=== PATIENT | male | born 1955 | race Caucasian/White ===

== ENCOUNTER → 2018-05-03 09:47 | Outpatient (CLI) | payer MEDICARE, OTHER, SELFPAY ==
[2018-05-03 10:06] LABS: Bacteria Urine None Seen; RBC Urine None Seen (0-5/HPF); WBC Urine None Seen (0-5/HPF)
[2018-05-03 10:53] LABS: Add Manual Diff / Slide Review NO; Basophils Percent Auto 0.5 % (0-2); Eosinophils Percent Auto 0.3 % (2-4); Hematocrit 45.9 % (41-53); Hemoglobin 15.4 g/dL (13.5-17.5); Mean Corpuscular HGB Conc 33.6 % (30-36); Mean Corpuscular Volume 86.5 fL (80-100); Monocytes Percent Auto 7.4 % (3-14); Neutrophils Absolute Auto 6700 /uL (3000-5900); Neutrophils Percent Auto 77.8 % (50-75); Platelet Count 401 X10^3/uL (150-400); Red Blood Cell Count 5.31 X10^6/uL (4.5-5.9); Red Cell Distribution Width 13.7 % (11.6-14.8); White Blood Cell Count 8.5 X10^3/uL (4.5-11.0)
[2018-05-03 10:55] LABS: Hemoglobin A1C% w Est Avg Glu 5.6 % (4.0-6.0)
[2018-05-03 11:30] LABS: BUN Creatinine Ratio 21.4 (6-22); Blood Urea Nitrogen 15 mg/dL (9-20); Calcium 9.8 mg/dL (8.4-10.2); Carbon Dioxide 27 mmol/L (22-32); Chloride 103 mmol/L (98-107); Estimated Glomerular Filt Rate > 60.0 mL/min (>60); Glucose 136 mg/dL (80-110); HEMOLYSIS < 15 (0-50); Potassium 4.7 mmol/L (3.4-5.1); Sodium 141 mmol/L (137-145)
[2018-05-03 11:38] LABS: Transferrin 303 mg/dL (206-381)
[2018-05-03 13:23] LABS: Appearance Urine UA CLEAR; Bilirubin Urine UA NEGATIVE (NEGATIVE); Color Urine UA YELLOW; Glucose Urine UA NEGATIVE (Normal); Ketones Urine UA NEGATIVE (NEGATIVE); Leukocyte Esterase Urine UA NEGATIVE (NEGATIVE); Nitrite Urine UA Negative (Negative); Occult Blood Urine UA NEGATIVE (Negative); Protein Urine UA NEGATIVE (Negative); Urobilinogen Urine UA 0.2 E.U./dL (0.2)
[2018-05-03 13:43] LABS: Culture Indicated Urine Cult Not Indicated; Urine Comments Microscopic Normal
== END ==
PROVIDERS: Visit Provider Orthopaedic Surgery
DX: N39.0 Urinary tract infection, site not specified (principal); R73.9 Hyperglycemia, unspecified; D64.9 Anemia, unspecified; M25.562 Pain in left knee; Z01.812 Encounter for preprocedural laboratory examination; Z01.818 Encounter for other preprocedural examination
CPT/HCPCS: 36415; 80048; 81001; 83036; 84466; 85025; 93005; 93010

== ENCOUNTER 2018-06-27 06:06 | Inpatient (IN) | payer MEDICARE, OTHER, SELFPAY ==
[2018-06-09 08:59] VITALS: BMI 26.2
[2018-06-27] VITALS (17 sets, daily range): BP systolic 131–172; BP diastolic 73–106; PULSE 74–112; RESP 8–26; TEMP 35.4–37; O2SAT 87–99; BMI 26.2
--- NOTE | 2018-06-27 | DI.RAD.S_ITS ---
PROCEDURE: XR KNEE RT 1TO2V INDICATIONS: TOTAL RIGHT KNEE TECHNIQUE: 2 view(s) of the knee acquired. COMPARISON: [facility], CR, XR KNEE LT 1TO2V, 06/27/2018, 10:57. FINDINGS: Bones: Patient is status post right knee total joint arthroplasty. Hardware components are in expected positions. Visualized bony structures are intact. Soft tissues: Overlying postoperative changes are noted. IMPRESSION: Normal operative alignment established after right total knee arthroplasty. Dictated by: Darwin Stock M.D. on 06/27/2018 at 11:37 Approved by: Darwin Stock M.D. on 06/27/2018 at 11:38
--- NOTE | 2018-06-27 | DI.RAD.S_ITS ---
PROCEDURE: XR KNEE LT 1TO2V INDICATIONS: left uni knee TECHNIQUE: 2 view(s) of the knee acquired. COMPARISON: None. FINDINGS: Bones: Patient is status post left knee joint medial hemiarthroplasty. Hardware components are in expected positions. Visualized bony structures are intact. Soft tissues: Overlying postoperative changes are noted. IMPRESSION: Normal alignment established after left medial compartment knee joint hemiarthroplasty. Dictated by: Darwin Stock M.D. on 06/27/2018 at 11:36 Approved by: Darwin Stock M.D. on 06/27/2018 at 11:37
[2018-06-27] MEDS: LACTATED RINGERS 1,000 ML 42 ML IV (06:52)
--- NOTE | 2018-06-27 07:50 | PM.PREOP ---
Pre-operative Note Interval Note Pre-op Check: Yes History & Physical Reviewed by Physician and Yes Exam Performed Changes: No
--- NOTE | 2018-06-27 07:50 | PM.OP.1 ---
Operative Date/Time/Diagnoses Date of procedure: 06/27/18 Time of procedure: 10:20 Pre-op diagnosis: Bilateral knee osteoarthritis Post-op diagnosis: same Procedure & Clinicians Procedure: 1. Right total knee replacement 2. Left medial unicompartmental arthroplasty Same procedure as scheduled: Yes Indications: The patient has had progressively worsening bilateral knee pain with radiographic changes consistent with arthritis. Non-operative management has failed and the patient has requested knee replacement. Due to ACL deficiency and patellofemoral pain on the right the patient will have a total knee. On the left side he has unicompartmental changes and pain will have a unicompartmental knee. The risks, benefits and alternatives to surgery were discussed with the patient prior to proceeding. Risks discussed included, but were not limited to, failure to relieve pain, stiffness, infection, nerve damage, deep venous thrombosis, pulmonary embolism, stroke, coma, heart attack, permanent paralysis and , as well as the potential need for eventual revision of the prosthetic. Surgeon: Rick Mai Recoating Machine Operator: Kvng Guallpa Click Yes if Unassisted: No Anesthesia Type: General, Spinal and Local Operative Notes Findings: Significant medial and patellofemoral osteoarthritis in the right knee significant medial osteoarthritis in the left knee. The patellofemoral and lateral compartments were not visualized due to the patient's lack of symptoms there preoperatively. Closure Type: primary Specimen(s): none sent Implants & Drains: Implants used in this procedure were manufactured by the [employer] and included the BCS II Journey total knee replacement for the right knee with a size 5 Oxinium femoral component, a size 4 non porous tibial base plate, a 10 mm crosslink polyethylene tibial insert and a 32 mm oval Natasha II patella. For the left knee a ZUK unicompartmental knee system from [employer] was utilized. This included a size C left medial femoral component, a size 2 left medial tibial component with an 11 mm polyethylene insert. Applied: implant(s) Estimated Blood Loss (mL): 100 Blood products transfused: none Tourniquet time (min): 54 (For the right side, left side was a 48 min tourniquet time.) Procedure in detail: The patient was seen in the pre-operative area, where the patient identified the right knee as the operative site for the total knee and the left knee as the operative site for the partial knee. Both knees were marked with my initials and with either TKA or UKA to identify the procedure. The patient received pre-operative antibiotics, and was taken to the operating room and placed on the operative table in the supine position. After satisfactory anesthesia, a time broker out was performed. The both legs were encircled with a tourniquet about the proximal thigh, and the legs were prepared from the toes to the tourniquet with ChloroPrep in the usual fashion and draped through sterile drapes. The right leg was elevated and exsanguinated with Eschmark bandage and the tourniquet inflated to 250 mmHg pressure. The knee was approached through an approximately 18 cm incision centered over the patella and carried into the knee through a medial parapatellar arthrotomy. The anterior osteophytes and soft tissues were removed. The rotational landmarks of [place]'s line and the transepicondylar axis were marked on the femur with electrocautery, and intramedullary guide holes for the femur and tibia were created. The distal femoral cut was made in 6 degrees of valgus using the intramedullary guide at the primary cut setting. The proximal tibial cut was then made using the intramedullary guide, taking 9 mm of bone off the less involved side. The extension gap was checked and the rotation of the femoral component confirmed with the gap balancing system. The anterior, posterior and chamfer cuts were then made. The posterior osteophytes and soft tissues were then removed. The posterior capsule was injected with part of a mixture of 40 ml 0.25% Marcaine mixed with 20 ml Exparel and 4 mg of morphine and enough saline to make the volume 100 mL for post-operative pain control. The remainder of this mixture was injected into the capsule and subcutaneous tissues during cement curing. The tibia was prepared with the rotation set by an extra medullary guide. Trial tibial and femoral components were then placed and the intercondylar notch cut through the femoral trial. Range of motion was 0-135 degrees, with good stability throughout the range. The patella was then cut to accommodate the patellar prosthetic. There was no need for a lateral release. The trials were then removed, and the femoral hole plugged with a bone plug. The bone was prepared with pulsatile lavage, and dried with a sponge. Cement was applied and the final prosthetics placed. Excess cement was removed during and after cement curing. After confirming there was no extruded cement posteriorly, the final tibial insert was placed. The knee was copiously irrigated and the tourniquet deflated. Hemostasis was obtained. The capsule was closed with interrupted # 2 polyester suture. The subcutaneous layer was closed with 3-0 Vicryl, and the skin with a running 3-0 V-Lock suture and SteriStrips. An Aquacel Ag dressing was applied. The left knee was then elevated and exsanguinated with an Esmarch bandage and tourniquet inflated to 250 mm of mercury. An approximately 10 cm incision was created over the medial aspect of the patellar tendon from the tibial tubercle to the proximal medial corner of the patella. A mid vastus incision was used and the knee. The medial meniscus was excised and part of the fat pad was excised to allow access to the medial tibial plateau. The linked cutting guide was placed used to make the distal femoral and proximal tibial cuts. The femoral sizer was applied and the appropriately sized cutting block used to make the posterior and chamfer cuts. The lug holes were also drilled and slightly enlarged with the T-handled reamer. The tibia was then sized and the trial tibia placed. The lug holes were drilled through the trial. The trial femoral component was placed and various sized tibial inserts were trialed using the 2 mm spacer stick. The appropriately sized implants were then opened. The posterior aspect of the medial meniscus had been removed prior to placing the trials. The posterior capsule was then injected with 20 mL of a solution containing 30 mL of 0.25% Marcaine mixed with 20 mL of Exparel and 4 mg of morphine along with enough saline to make the volume 100 mL. The remainder of this solution was injected into the capsule and subcutaneous tissues during closure. Bone was treated with pulsatile lavage and dried. Cement was impacted into position in the prosthetics placed. After curing of the cement and removal of all excess cement the final tibial insert was placed. The wound was copiously irrigated with pulsatile lavage. The tourniquet was deflated and hemostasis obtained with electrocautery. Closure was obtained with 1. Tycron in the capsular layer with 0 Vicryl for the intramuscular extension. The subcutaneous layer was closed with interrupted 3 O Vicryl the skin with a running 3 0 V lock suture. Steri-Strips were applied followed by an Aquacel Ag dressing. Both knees were then wrapped in Eze wraps. The patient was then transferred to the recovery room in good condition having tolerated the procedure well. Complications: none Condition: stable Disposition: PACU Plan for aftercare: The patient will be maintained on a standard total knee replacement protocol with weight bearing as tolerated. The patient will receive aspirin and sequential compression devices for DVT prophylaxis. The patient will be discharged home when safe for the home environment.
[2018-06-27] MEDS: CEFAZOLIN 1 GM VIAL IV ×2 (08:15→09:26)
[2018-06-27] MEDS: ACETAMINOPHEN IV 1,000 MG/100 ML VIAL 400 MG IV (08:30)
--- NOTE | 2018-06-27 08:48 | SUR.OPER ---
Supine on padded OR bed. Pillow under head, arms secured on padded armboards <90 degree abduction. Safety belt across torso. Both-legs secured secured in [employer] positioners - for left Medial Uni and right TKA today.
[2018-06-27] MEDS: BUPIVACAINE 0.25% W/ EPI VIAL 70 ML INJ (10:29)
[2018-06-27] MEDS: BUPIVACAINE LIPOSOME 266 MG/20 ML VIAL 532 MG INJ (10:31)
[2018-06-27] MEDS: MORPHINE 4 MG/ML INJ 8 MG IM (10:34)
--- NOTE | 2018-06-27 11:00 | SUR.PHASEI ---
On arrival restless and with some incoherence- pulling off gown. Skin diapohoretic. O2 applied with RA sats >90%.
--- NOTE | 2018-06-27 11:07 | SUR.PHASEI ---
When sleeping RR tends to decrease slight, but sats decrease more. On and off O2 in PACU.
[2018-06-27] MEDS: HYDROMORPHONE 2 MG INJ 0.5 MG IV (11:14)
[2018-06-27] MEDS: LACTATED RINGERS 1,000 ML 125 ML IV ×2 (12:28→21:01)
[2018-06-27] MEDS: ACETAMINOPHEN 325 MG TABLET 975 MG PO ×2 (14:58→20:30)
--- NOTE | 2018-06-27 15:01 | PT.IIE ---
Addendum entered and electronically signed by Kareen Lopez, PT 06/27/18 16:35: I certify I directly supervised and guided this patient. R Heena Lopez DPT Original Note: Current Diagnoses Unilateral primary osteoarthritis, right knee (06/27/18) Unilateral primary osteoarthritis, left knee (06/27/18) Sprain of anterior cruciate ligament of right knee, sequela (06/27/18) Surgery Performed Operation Date: 06/27/18 07:45 Actual Procedures p Right Total Knee Arthroplasty, Left Medial Compartment Arthroplasty - Rick Mai MD Surgical History (Last Reviewed 06/27/18 @ 12:52 by Kodi Davies) H/O: vasectomy (Acute) Hx of right inguinal hernia repair (Acute) Hx of umbilical hernia repair (Acute) Medical History (Last Reviewed 06/27/18 @ 12:52 by Kodi Davies) Arthritis (Acute) Right shoulder pain (Acute) Physical Therapy Inpatient Evaluation/Re-Eval M1 PT/OT-IP Prior Functional Status Start: 06/27/18 16:00 Freq: NEEDED Status: Active Protocol: Document 06/27/18 15:01 (Rec: 06/27/18 16:27 [email or web address]) Medical Review Prior Functional Status Medical History Reviewed Yes Communication No deficits noted Mobility and Gait Prior to surgery pt was modified independent with mobilities using a spc. He was independent with all other mobilities including bathing and self care. Social History Household Members spouse Living Arrangements House Number of Floors (Floors) Two Floors Number of Stairs To Enter/Railing? 5 steps to enter L rail ascending. Home Environment Tub/Shower Home Equipment Front Wheel Walker Straight Cane Hand Held Shower Employment Status Administration Manager Employed Additional Social History Comment Pt has his shop closed for the month of June for his recovery. His will be avaliable for 22/03 assist. They have a stool that they plan to use in the shower. Home is 2 floors, but he is set up to live entirely on first floor while he recovers. Ascending from the toilet he can push from sink on R. M2 PT-IP Current Condition Start: 06/27/18 16:00 Freq: NEEDED Status: Active Protocol: Document 06/27/18 15:01 (Rec: 06/27/18 16:27 [email or web address]) Physical Therapy Current Condition Weight Bearing Status Weight Bearing Status Weight Bear as Tolerated Allowed Weight Bearing Amount (enter % BLE are WBAT or #) (%) M3 PT-IP Subjective Start: 06/27/18 16:00 Freq: NEEDED Status: Active Protocol: Document 06/27/18 15:01 (Rec: 06/27/18 16:27 [email or web address]) Subjective Physical Therapy Visit Type Type Initial Evaluation Visit Start Time 15:01 Visit Stop Time 15:38 Total Visit Minutes 37 Number of CHARTER COACH DRIVER Visits 0 Physical Therapy Visit Comments Patient Comments Pt agreeable to mobilize with PT. Patient Goals Pt plans to go home with upon d/c Therapy Pain Assessment Pain When Pain Assessed During Mobility Pain Present Pain Present Pain Reported Location Bilateral Knee Scale Used R knee 5/10 at rest. L knee 1 /10 at rest. with mobility R knee 6/10. Pain Management Techniques Apply Cold Elevation Modification of Treatment Re-positioning Timing of Activity with Medications M4 PT-IP Mobility and Gait Start: 06/27/18 16:00 Freq: NEEDED Status: Active Protocol: Document 06/27/18 15:01 (Rec: 06/27/18 16:27 [email or web address]) PT-Bed Mobility Assessment Supine to Sit Supine to Sit Standby Assistance Scooting Scooting to Edge of Bed Independent PT-Transfer Assessment Sit to and From Stand Sit to and from Stand Contact Guard Assistance Equipment Transfer Assistive Device Gait Belt Front Wheeled Walker Orthotic/Prosthetic Devices or Brace: No Transfers Transfer Destination Bed Chair Comments Mobility Comments Supine BP 162/95 HR 80, o2 95% on room air. Sitting EOB BP 164/105 HR 87, o2 94%. Standing BP 165/104 HR 92. Sit <> stand SBA with fww requiring mod cues needed for hand placement (avoid walker) during sit <> stand. pt complains of slight dizziness with sitting EOB, but VSS are stable and pt agrees to attempt standing. standing symptoms of dizziness decrease , VSS are stable and pt agrees to ambulate. Gait Assessment Gait Gait Assistance Required: Contact Guard Assist Distance (Feet) 50 Able to Maintain Weight Bearing Status Yes During Gait Assistive Devices Assistive Device Gait Belt Front Wheeled Walker Orthotic/Prosthetic Devices or Brace: No Gait Deviations General Gait Pattern Antalgic Decreased Stride Length Decreased Feet Clearance Flexed Trunk Factors Limiting Gait Function Factors Limiting Gait Function Decreased Activity Tolerance Decreased Strength Limited Range of Motion Pain Poor Balance Poor Safety Awareness Comments Gait Comments Pt ambulated 25+5+50 (bed > BR > chair > bed) with CGA and fww and required mod cues for upright posture, activating quads, and allowing knee to bend appropriately during gait cycle. Post ambulation BP 164/93 HR 91 and 02 94%. Pt no longer c/o dizziness. Nurse aware that pt taken off O2 supplement during and after session. PT-Balance Assessment Sitting Balance and Reactions Static Sitting Balance Ability Good Dynamic Sitting Balance Ability Good Standing Balance and Reactions Static Standing Balance Ability Good Dynamic Standing Balance Ability Fair Device Used fww M5 PT-IP Objective Assessments Start: 06/27/18 16:00 Freq: NEEDED Status: Active Protocol: Document 06/27/18 15:01 (Rec: 06/27/18 16:27 [email or web address]) Strength Lower Extremity Strength Assessment Bilaterally Impaired Hip 3+ Knee 3+ Ankle 5 Comments Strength Comments grossly symmetrical strength. M6 PT-IP Treatment Start: 06/27/18 16:00 Freq: NEEDED Status: Active Protocol: Document 06/27/18 15:01 (Rec: 06/27/18 16:27 [email or web address]) Physical Therapy Treatment Exercises Exercises Ankle Pumps Quad Sets Heel Slides Straight Leg Raises Short Arc Quads Passive Knee Extension Hang Seated Knee Flexion/Extension Education Education Provided Precautions Weight Bearing Status Post-Op Packet Safety M7 PT-IP Assessment and Plan Start: 06/27/18 16:00 Freq: NEEDED Status: Active Protocol: Document 06/27/18 15:01 (Rec: 06/27/18 16:27 [email or web address]) PT Summary Assessment and Plan Potential Rehabilitation Potential Good Status of Condition at Evaluation Stable Summary Impairments Pain ROM Strength Balance Coordination Bed Mobility Transfers Gait Activity Tolerance Progress Towards Goals Progressing Toward Goals Assessment Summary Pt s/p R TKA and L knee unicompartment replacement presenting with difficulty walking. He was able to ambulate 75 feet this session CGA with fww and no LOB but does demonstrate significant antalgic gait. Recommend d/c to home with 24/7 assist and f /u OP PT when pt is medically stable and caregiver training complete. Goals Bed Mobility Goal Independent Transfer Goal Independent Gait Goal Standby Assistance Gait Distance 300 Other Goals up down 5 steps with L rails ascending CGA as needed for safe access home. Frequency of Treatment Frequency Of Treatment Twice a Day Treatment Plan Physical Therapy Treatment Plan Bed Mobility Training Transfer Training Gait Training Therapeutic Exercise Balance Retraining Post Op Education Discharge Planning Hot or Cold Pack Neuromuscular Re-ed Coordination Retraining Manual Therapy Other Recommendations and Next Treatment stair climbing. Pt Focus prepared to be here for caregiver training at 3 pm. Recommendations To Nursing Amount of Assist Needed 1 Person Assist Discharge Recommendations PT Discharge Recommendations Home with 24/ Assist Outpatient PT
--- NOTE | 2018-06-27 16:27 | PC.NURSE ---
Addendum entered by Nina Vines R.N. 06/27/18 21:03: Satisfactory post op course. IV continues as per orders. Dsg remain CDI. Voiding per urinal. Med w/ oxycodone at 1900 w/ good reoief. Call light w/in reach, bed alarm on for pt safety. Continue w/plan of care. Original Note: Addendum entered by Nina Vines R.N. 06/27/18 18:58: Med at this time w/oxycodone for 3/10 discomfort. Original Note: Pt sitting in chair, assisted to BR w/o incidense. Denies discomfort at this time. IV LR infusing at 125cc/hr via pump into the right hand w/o incidence. Dsg on bilateral knees CDI. CMS ++, ice to surgical sites. Call light w/in reach.
[2018-06-27] MEDS: CEFAZOLIN 2 GM/100 ML FROZ.PIGGY IV (16:35)
[2018-06-27] MEDS: OXYCODONE IR 5 MG TABLET PO (18:55)
[2018-06-27] MEDS: ASPIRIN EC 81 MG TABLET PO (20:29)
[2018-06-27] MEDS: DOCUSATE 100 MG CAPSULE PO (20:29)
[2018-06-28 00:16] VITALS: BP 154/93; PULSE 82; RESP 18; TEMP 36.7; O2SAT 95
[2018-06-28] MEDS: OXYCODONE IR 5 MG TABLET PO ×4 (00:40→12:56)
[2018-06-28] MEDS: CEFAZOLIN 2 GM/100 ML FROZ.PIGGY IV (01:23)
[2018-06-28 04:58] VITALS: BP 151/94; PULSE 79; RESP 16; TEMP 36.6; O2SAT 96
[2018-06-28 06:12] LABS: Hematocrit 38.6 % (41-53); Hemoglobin 12.8 g/dL (13.5-17.5)
--- NOTE | 2018-06-28 07:53 | PM.DS.1 ---
History of Present Illness Date Patient Seen: 06/28/18 Time Patient Seen: 07:53 Chief complaint: right total knee arthroplasty [id number] Narrative: The history of present illness and physical examination is contained in the chart in a previously completed note. Please refer to that note for this information. Discharge Providers Date of admission: 06/27/18 06:06 Consults: 06/27/18 12:05 Consult to Discharge Planning Routine Comment: Consult to Physical Therapy Evaluate & Treat Comment: Physician Instructions: postop TKA protocol Discharge provider: Rick Mai MD Discharge Date: 06/28/18 Summary Discharge Diagnosis: 1. Bilateral knee osteoarthritis 2. Mild post hemorrhagic anemia Hospital Course: The patient was admitted to the hospital and taken directly to the operating room on June 27, 2018 where he underwent a right total knee replacement and a left knee unicompartmental arthroplasty. On postoperative day 1 he had mild pain on the right side and essentially no pain on the left. He had made good progress with walking on level floors but had not attempted stairs. He needs to be able to scale 5 stairs in order to enter his home. At the time of this dictation the plan is for him to do stairs with physical therapy today and then likely be discharged. If he is unable to do the stairs then he will be kept in the hospital until tomorrow. Status at Discharge Cognitive/behavioral status at discharge: Baseline. Functional status at discharge: uses cane/walker Overall status at discharge: patient is progressing back to baseline Time Spent with Patient Less than 30 minutes Exam Vital Signs (past 8 hours): - 06/28/18 00:16 06/28/18 04:58 Temperature 98.0 F 97.8 F Pulse Rate 82 79 Respiratory Rate 18 16 Blood Pressure 154/93 H 151/94 H Pulse Oximetry 95 96 Oxygen Delivery Method Nasal Cannula Oxygen Flow Rate 0 Narrative Exam Narrative: On physical examination the dressings on both knees are without significant drainage. Calves are soft. Light touch and motion are intact in both lower extremities. Objective Labs Result Diagrams: 06/28/18 05:45 Labs: Laboratory Results - last 24 hr 06/28/18 05:45 Hgb 12.8 L Hct 38.6 L Radiographs reveal an appropriately positioned right total knee replacement and left medial unicompartmental arthroplasty with no signs of complications. Discharge Plan Discharge Plan Patient Disposition: Home Discharge Med Rec/Prescriptions Prescriptions: New acetaminophen 325 mg Tablet 975 mg PO TID 30 Days Qty: 270 RF: 0 polyethylene glycol 3350 17 gram Powder In Packet 17 gm PO DAILY PRN (Reason: Constipation) 30 Days RF: 0 aspirin 81 mg Tablet,Delayed Release (Dr/Ec) 81 mg PO BID 42 Days Qty: 84 RF: 0 docusate sodium 100 mg Capsule 100 mg PO BID 30 Days Qty: 60 RF: 0 oxycodone 5 mg Tablet 5 mg PO Q3HR PRN (Reason: Pain, Moderate (4-6)) Qty: 60 RF: 0 hydroxyzine pamoate 25 mg Capsule 25 mg PO Q6HR PRN (Reason: Nausea) Qty: 40 RF: 0 Continue naproxen sodium [Aleve] 220 mg Capsule 660 mg PO DAILY PRN (Reason: pain) RF: 0 Follow up/Referrals: Rick Mai MD [Physician] - 3-5 Days Provider Discharge Instructions Diet: Diet as Tolerated and Regular Activity: You may weight bear as tolerated. Walk for short periods of time every hour while awake Cold/Heat Therapy: Apply ice to both knees through the bandage for 15 min every hour as needed. Skin/Wound/Dressing Care Report to your healthcare provider any signs of infection, such as:: chills, fever, night sweats, increased pain and unusual drainage Dressing: Remove the Eze wrap dressing 3 days after surgery. You may shower with the deeper dressing in place. If the central strip of the deep dressing becomes saturated with either water or blood call the office to have it changed. Discharge Data Attending Provider: Rick Mai Admit Date/Time: 06/27/18 06:06
[2018-06-28 08:50] VITALS: BP 155/80; PULSE 97; RESP 24; TEMP 36.6; O2SAT 94
--- NOTE | 2018-06-28 08:58 | PT.IPTN ---
Addendum entered and electronically signed by Kareen Lopez, PT 06/28/18 11:25: I certify I directly supervised and guided this session. R Heena Lopez DPKeren Original Note: Current Diagnoses Unilateral primary osteoarthritis, right knee (06/27/18) Unilateral primary osteoarthritis, left knee (06/27/18) Sprain of anterior cruciate ligament of right knee, sequela (06/27/18) Surgery Performed Operation Date: 06/27/18 07:45 Actual Procedures p Right Total Knee Arthroplasty, Left Medial Compartment Arthroplasty - Rick Mai MD Physical Therapy Treatment Note M2 PT-IP Current Condition Start: 06/27/18 16:00 Freq: NEEDED Status: Active Protocol: Document 06/28/18 10:39 (Rec: 06/28/18 10:59 [email or web address]) Physical Therapy Current Condition Current Condition Evaluation Date 06/27/18 Treatment Diagnosis R TKA, L uni replacement; difficulty walking Onset Date 06/27/2018 Weight Bearing Status Weight Bearing Status Weight Bear as Tolerated Allowed Weight Bearing Amount (enter % BLE are WBAT or #) (%) M3 PT-IP Subjective Start: 06/27/18 16:00 Freq: NEEDED Status: Active Protocol: Document 06/28/18 10:39 (Rec: 06/28/18 10:59 [email or web address]) Subjective Physical Therapy Visit Type Type Treatment Note Visit Start Time 08:58 Visit Stop Time 09:30 Total Visit Minutes 32 Number of ACRYLIC FABRICATOR Visits 0 Physical Therapy Visit Comments Patient Comments Pt agreeable to mobilize with PT Patient Goals Pt hopes to spend another night in the hospital then go home with at d/c. Therapy Pain Assessment Pain When Pain Assessed During Mobility Pain Present Pain Present Pain Reported Location Bilateral Knee Scale Used L knee 0-1/10 and R 5/10. ( both constant with rest and mobility) Pain Management Techniques Apply Cold Distraction Elevation Modification of Treatment Re-positioning Timing of Activity with Medications M4 PT-IP Mobility and Gait Start: 06/27/18 16:00 Freq: NEEDED Status: Active Protocol: Document 06/28/18 10:39 (Rec: 06/28/18 10:59 [email or web address]) PT-Bed Mobility Assessment Supine to Sit Supine to Sit Standby Assistance Scooting Scooting to Edge of Bed Independent PT-Transfer Assessment Sit to and From Stand Sit to and from Stand Standby Assistance Equipment Transfer Assistive Device Gait Belt Front Wheeled Walker Orthotic/Prosthetic Devices or Brace: No Transfers Transfer Destination Chair Wheelchair Comments Mobility Comments VSS resting/HOB elevated 155/ 80. supine to sit is SBA and pt c/o dizziness at EOB. BP seated 144/103 and HR 103. Pt cued for deep breathing and to rest 1-2 mins. before standing. Pt states dizziness decreased and agrees to stand . Sit > stand is SBA with min cues for hand placement ( avoid walker). Standing BP 155/87, HR 108. Pt states symptoms of dizziness are mild . Gait Assessment Gait Gait Assistance Required: Standby Assistance Distance (Feet) 20 Able to Maintain Weight Bearing Status Yes During Gait Assistive Devices Assistive Device Gait Belt Front Wheeled Walker Orthotic/Prosthetic Devices or Brace: Yes Gait Deviations General Gait Pattern Antalgic Decreased Stride Length Decreased Feet Clearance Factors Limiting Gait Function Factors Limiting Gait Function Decreased Activity Tolerance Decreased Strength Limited Range of Motion Pain Poor Balance Comments Gait Comments Pt ambulates SBA with fww 20 + 10 + 10 +20 ft from bedside to w/c to/from stairs. Pt circumducts R LE with gait and is able to partially correct with cues. Stair Climbing Assessment Evaluation Level of Assist On Stairs Minimal Assistance 1 Person Assistance Devices Stair Climbing Assistive Devices Straight Cane Left Railing Technique/Endurance Stair Climbing Direction Ascend and Descend Stair Climbing Technique Step to Step Number of Steps Climbed 3 Query Text: Stair Climbing Set # Repetitions (reps) 2 Comments Stair Climbing Comments Performed up/down 3 stairs X2 with spc, Ciro for balance, L rail ascendin, and seated rest break between sets. Descends with backwards strategy. Pt requires mod cues for quad activation, and to bend RLE instead of circumduct to ascend steps. Post session seated BP 153/85 HR 105. Pt left in recliner with call light, ice over B knees. M5 PT-IP Objective Assessments Start: 06/27/18 16:00 Freq: NEEDED Status: Active Protocol: Document 06/28/18 10:39 (Rec: 06/28/18 10:59 [email or web address]) Orientation Orientation/Cognition Level of Alertness Alert Safety Awareness Decreased Safety Awareness M6 PT-IP Treatment Start: 06/27/18 16:00 Freq: NEEDED Status: Active Protocol: Document 06/28/18 10:39 (Rec: 06/28/18 10:59 [email or web address]) Physical Therapy Treatment Education Education Provided Safety M7 PT-IP Assessment and Plan Start: 06/27/18 16:00 Freq: NEEDED Status: Active Protocol: Document 06/28/18 10:39 (Rec: 06/28/18 10:59 [email or web address]) PT Summary Assessment and Plan Potential Rehabilitation Potential Good Status of Condition at Evaluation Stable Summary Impairments Pain ROM Strength Balance Coordination Bed Mobility Transfers Gait Activity Tolerance Progress Towards Goals Progressing Toward Goals Assessment Summary Pt was able to complete up down a total of 6 steps today with Ciro, spc and L rail ascending without c/o of increased pain during mobility . Continue to recommend d/c to home with 24/7 assist and f /u OP PT. Goals Bed Mobility Goal Independent Transfer Goal Independent Front Wheeled Walker Gait Goal Standby Assistance Front Wheel Walker Gait Distance 150 Other Goals Up down 6 steps with spc and L rail ascending. Frequency of Treatment Frequency Of Treatment Twice a Day Treatment Plan Physical Therapy Treatment Plan Bed Mobility Training Transfer Training Gait Training Therapeutic Exercise Balance Retraining Post Op Education Discharge Planning Hot or Cold Pack Neuromuscular Re-ed Coordination Retraining Manual Therapy Recommendations To Nursing Amount of Assist Needed Standby Assistance Discharge Recommendations PT Discharge Recommendations Home with 24/7 Assist
[2018-06-28] MEDS: DOCUSATE 100 MG CAPSULE PO (09:53)
[2018-06-28] MEDS: ACETAMINOPHEN 325 MG TABLET 975 MG PO (09:54)
[2018-06-28] MEDS: hydrOXYzine pamoate 25 MG CAPSULE PO (09:55)
[2018-06-28] MEDS: ASPIRIN EC 81 MG TABLET PO (11:33)
[2018-06-28 11:35] VITALS: BP 155/89; PULSE 99; RESP 20; TEMP 36.9; O2SAT 94
== END 2018-06-28 13:25 | disposition home or self-care (01) | DRG 462 ==
PROVIDERS: Admitting Provider Orthopaedic Surgery; Visit Provider Orthopaedic Surgery
PROC: 0SRC0J9 Replacement of Right Knee Joint with Synthetic Substitute, Cemented, Open Approach (ICD-10-PCS; principal; 2018-06-27 07:45)
DX: M17.0 Bilateral primary osteoarthritis of knee (principal); I10 Essential (primary) hypertension
CPT/HCPCS: 36415; 73560; 85014; 85018; 97116; 97161; 97530; C1776; C9290; J0131; J0690; J1100; J1170; J2250; J2270; J2405; J2704; J3010